=== PATIENT | female | born 1990 | race African-American/Black ===

== ENCOUNTER 2017-03-12 16:29 | Inpatient (IN) | payer MEDICAID ==
[~2017-03-12] VITALS: Ht 170.3 cm; Wt 132.3 kg
[2017-04-02] VITALS (18 sets, daily range): BP systolic 92–143; BP diastolic 51–79; PULSE 82–107; TEMP 82–98.6
[2017-04-02 07:06] LABS: BASO % 0.4 % (0.0-2.0); EOS % 0.4 % (0-4.0); GRAN # 3.1 (1.4-6.5); GRAN % 61.9 % (42.2-75.2); HEMATOCRIT 35.3 % (37.0-47.0); HEMOGLOBIN 10.9 g/dl (12.5-16.0); LYMPH # 1.5 (1.2-3.4); MEAN CELL VOLUME 66 fl (80.0-100.0); MEAN CORPUSCULAR HEMOGLOBIN 20 pg (27.0-31.0); MEAN CORPUSCULAR HGB CONC 31 g/dl (33.0-37.0); MONO # 0.3 (0.1-0.6); MONO % 6.7 % (1.7-9.3); PLATELET COUNT 133 K/mm3 (130-400); RED BLOOD COUNT 5.32 M/mm3 (4.10-5.30); REDCELL DISTRIBUTION WIDTH-CV 16.8 % (11.5-14.5)
[2017-04-02] MEDS ORDERED: PRENATAL1 TA7 PO (07:07)
[2017-04-03 02:10] VITALS: BP 127/84; PULSE 99; TEMP 97.7
[2017-04-03 07:35] VITALS: BP 130/74; PULSE 97; TEMP 98.6
[2017-04-03 16:15] VITALS: BP 127/73; PULSE 114; TEMP 97.8
[2017-04-03 17:30] VITALS: PULSE 99
[2017-04-03 20:40] VITALS: BP 115/68; PULSE 92; TEMP 98.7
[2017-04-04 07:30] VITALS: BP 110/80; PULSE 88; TEMP 98.4
[2017-04-04] MEDS ORDERED: IBU800 M1 PO (08:07)
[2017-04-04] MEDS ORDERED: PERCOCET 325 MG1 TA2 PO (08:07)
== END 2017-04-04 13:05 | disposition home or self-care (01) | DRG 766 ==
LOC: OB 04-02 05:51 → LDR 04-02 06:34 → OB 04-04 13:05 → LDR 04-08 16:29
PROVIDERS: Obstetrics & Gynecology
PROC: 10D00Z1 Extraction of Products of Conception, Low, Open Approach (ICD-10-PCS; principal; 2017-04-02)
PROC: 0UB50ZZ Excision of Right Fallopian Tube, Open Approach (ICD-10-PCS; 2017-04-02)
DX: O34.211 Maternal care for low transverse scar from previous cesarean delivery (principal); N85.8 Other specified noninflammatory disorders of uterus; O99.824 Streptococcus B carrier state complicating childbirth; O34.13 Maternal care for benign tumor of corpus uteri, third trimester; D25.1 Intramural leiomyoma of uterus; D25.2 Subserosal leiomyoma of uterus; Z3A.39 39 weeks gestation of pregnancy; Z37.0 Single live birth
CPT/HCPCS: J0690; J1885; J2250; J2270; J2370; J2405; J2550; J2590; J2765; J3010; J7120